=== PATIENT | female | born 1995 | race African-American/Black ===

== ENCOUNTER 2021-05-16 19:09 | Emergency (ER) | payer MEDICAID, OTHER ==
[~2021-05-16] VITALS: Ht 154.9 cm; Wt 53.5 kg
[2021-05-16 19:10] VITALS: BP 120/72
[2021-05-16] MEDS ORDERED: cefTRIAXone SOD 1,000 MG VL IM ONE (21:15)
== END 2021-05-16 23:10 | disposition home or self-care (01) ==
LOC: ER 19:15
DX: J03.90 Acute tonsillitis, unspecified (principal); R53.83 Other fatigue
CPT/HCPCS: 96372; 99283; J0696